=== PATIENT | male | born 1990 | race Caucasian/White ===

== ENCOUNTER 2021-02-16 14:08 | Emergency (ER) | payer OTHER ==
[2021-02-16] MEDS ORDERED: Ketorolac 15 MG/ML SDV IM ONE (14:55)
--- NOTE | 2021-02-16 15:33 | CR ---
INDICATION: Foreign body. TECHNIQUE: Three view left hand. IMPRESSION: Metallic foreign body (threaded bolt) volar aspect of the carpal tissues No definite osseous abnormality or fracture. No other osseous fractures or joint space abnormalities. Anatomic alignment. Dictated by Yonas Coronel MD @ 02/16/2021 3:33:[address] Yonas Coronel @ Feb 16 2021 3:33PM
[2021-02-16] MEDS ORDERED: Lidocaine 1% 10 ML MDV INJECT ONE (15:37)
--- NOTE | 2021-02-16 16:40 | CR ---
Indication: Foreign body removal Technique: Three views left hand Comparison: Same date at 2:58 p.m. Findings/impression: Interval removal of a threaded bolt from the volar aspect of the carpal region. No residual radiopaque foreign body or fracture. Dictated by Cindy Thapa MD @ 02/16/2021 4:39:[address] Cindy Thapa @ Feb 16 2021 4:39PM
[2021-02-16] MEDS ORDERED: Diphtheria,Pertussis(Acell),Tetanus Vaccine 0.5 ML Syringe IM ONE (16:44)
[2021-02-16] MEDS ORDERED: Cephalexin 250 MG/5 ML Susp 100 ML Bottle PO ONE (16:49)
--- NOTE | 2021-02-16 17:04 | EDM.PDOC ---
ED HPI GENERAL MEDICAL PROBLEM - General Chief Complaint: Upper Extremity Injury/Pain Stated Complaint: SCREW IN LFT HAND Time Seen by Provider: 02/16/21 14:37 - History of Present Illness INITIAL COMMENTS - FREE TEXT/NARRATIVE: HISTORY AND PHYSICAL: History of present illness: Patient is a 31-year-old male who presents to the emergency room with complaints of a threaded bolt/screw embedded in the palmar aspect of his left hand. Patient states he was doing some work in the garage when a nail/screw gun had gone off resulting in the screw in the palmar aspect of his left hand. The head of the nail is flush with the skin. He has full range of motion of his fingers and wrist. Denies any other bodily injury or pain. Offers no systemic complaints. Unsure of his last tetanus update. Review of systems: As per history of present illness and below otherwise all systems reviewed and negative. Past medical history: As per history of present illness and as reviewed below otherwise noncontributory. Surgical history: As per history of present illness and as reviewed below otherwise noncontributory. Social history: See social history for further information Family history: As per history of present illness and as reviewed below otherwise noncontributory. Physical exam: General: Well developed and well nourished. Alert and orientated x 3. Nontoxic in appearance and in no acute distress. Vital signs are stable and have been reviewed by me. Nursing notes were reviewed. HEENT: Atraumatic, normocephalic, pupils equal and reactive bilaterally, negative for conjunctival pallor or scleral icterus, mucous membranes moist, TMs normal bilaterally, throat clear, neck supple, nontender, trachea midline. No drooling or trismus noted. No meningeal signs. No hot potato voice noted. Lungs: Clear to auscultation bilaterally. No wheezes, rales, or rhonchi. Chest nontender. Normal work of breathing, no accessory muscles used. Heart: S1S2, regular rate and rhythm without overt murmur, gallops, or rubs. No JVD. No peripheral edema Abdomen: Soft, nondistended, nontender. Skin: Foreign body (screw) embedded in the volar aspect of the palmar/base of left thumb. Surrounding skin is intact, warm, dry. No lesions or rashes noted. Hematologic: No petechiae or purpra. Mucosa appropriate color and normal nail bed color and refill. Extremities: Atraumatic, moves all extremities per self without difficulty or deficits, negative for cords or calf pain. Neurovascular unremarkable. Neuro: Awake, alert, oriented. Cranial nerves II through XII unremarkable. Cerebellum unremarkable. Motor and sensory unremarkable throughout. Exam nonfocal. Psychiatric: Mood and affect are appropriate. Normal thought process. Answering questions appropriately. Please note that the patient was seen and evaluated during the 2019 SARS-CoV-2 novel coronavirus pandemic period. Community viral transmission is ongoing at time of this encounter and the emergency department is operating under pandemic response procedures. Medical Decision Making: I did see this patient with Dr. Bravo. Patient is a 31-year-old male who presents to the emergency room with complaints of a screw embedded in the palm of his left hand. Patient has full function of the fingers and wrist. Preremoval x-ray shows a metallic foreign body (threaded bolt) volar aspect of the carpal tissues. No definite osseous abnormality or fracture. No other osseo us fractures or joint space abnormalities. Anatomic alignment. Dr Bravo provided pain relief with lidocaine injection. The screw was easily removed with direct force. Patient tolerated well. Still has full function and movement of all fingers and wrist. Cap refill less than 3 seconds. No active bleeding post removal. We will get a x-ray to confirm no fractures after the foreign body has been removed. The foreign body site was thoroughly irrigated with wound wash and cleansed with chlorhexidine. Bacitracin nonstick dressing was applied. Interval removal of a threaded bolt from the volar aspect of the carpal region. No residual radiopaque foreign body or fracture. I have talked with the patient about today's findings, in addition to providing specific details for plan of care. Reassessment at the time of disposition demonstrates that the patient is in no acute distress. The patient is stable for discharge, counseling was provided and we discussed in great detail signs and symptoms that would prompt them to return to the Emergency Department. Medication, follow up and supportive care measures were reviewed and discussed. Voices understanding and is agreeable to plan of care. Denies any further questions or concerns at this time. Diagnostics: Hand x-ray, post foreign body removal hand x-ray Therapeutics: Lidocaine Prescription: Keflex Impression: Foreign body of right hand Plan: 1. Today you were seen on an emergent basis. A lidocaine injection was used to help remove the foreign body from your hand. Pre and post removal x-ray shows no fractures. Would like you to keep the area clean and dry, wash with mild soap and water twice daily. Take the Keflex one tab twice daily to prevent an infection. 2. Tylenol and/or ibuprofen as needed for pain management. 3. Please follow-up with your primary care provider or a hand surgeon if you feel you need reevaluation. 4. If at any time your symptoms worsen or new symptoms develop you're always welcome to return to the emergency room for reevaluation. Definitive disposition and diagnosis as appropriate pending reevaluation and review of above. Left Hand Pain Score (Numeric/FACES): 7 - Related Data Allergies Allergy/AdvReac Type Severity Reaction Status Date / Time No Known Allergies Allergy Verified 02/16/21 14:44 Home Meds: Home Meds cephALEXin [Keflex] 500 mg PO BID 5 Days #10 cap 02/16/21 [Rx] Past Medical History - Past Health History Medical/Surgical History: Denies Medical/Surgical History - Infectious Disease History Infectious Disease History: Reports: None Social & Family History - Tobacco Use Tobacco Use Status *Q: Never Tobacco User - Caffeine Use Caffeine Use: Reports: None - Recreational Drug Use Recreational Drug Use: No Review of Systems - Review of Systems Review Of Systems: Comprehensive ROS is negative, except as noted in HPI. ED EXAM, GENERAL - Physical Exam Exam: See Below (See dictation) ED TRAUMA EXTREMITY PROCEDURES - Foreign Body Removal Indication:: Left palmar surface Consent Obtained: Patient Performing Doctor:: Gabriel Bravo Anesthesia Type: Local Complications:: No Course - Vital Signs Last Recorded V/S: Last Vital Signs Temp 97.2 F 02/16/21 14:45 Pulse 83 02/16/21 17:10 Resp 16 02/16/21 14:45 BP 134/80 02/16/21 17:10 Pulse Ox 96 02/16/21 17:10 - Orders/Labs/Meds Meds: Medications Discontinued Medications Generic Name Dose Route Start Last Admin Trade Name Freq PRN Reason Stop Dose Admin Cephalexin 250 mg 02/16/21 16:49 02/16/21 17:13 Cephalexin 250 Mg/5 Ml Susp 100 Ml Bottle PO 02/16/21 16:50 Not Given ONETIME ONE Diphtheria/Tetanus/Acell Pertussis 0.5 ml 02/16/21 16:44 02/16/21 17:14 Diphtheria,Pertussis(Acell),Tetanus Vaccine 0.5 Ml Syringe IM 02/16/21 16:45 0.5 ml .ONCE ONE Administration Ketorolac Tromethamine 15 mg 02/16/21 14:55 02/16/21 15:11 Ketorolac 15 Mg/Ml Sdv IM 02/16/21 14:56 15 mg ONETIME ONE Administration Lidocaine HCl 10 ml 02/16/21 15:37 02/16/21 15:39 Lidocaine 1% 10 Ml Mdv INJECT 02/16/21 15:38 Not Given ONETIME ONE Lidocaine HCl Confirm 02/16/21 15:38 02/16/21 15:41 Lidocaine 1% 5 Ml Sdv Administered 02/16/21 15:39 Not Given Dose 10 ml .ROUTE .STK-MED ONE Lidocaine HCl 10 ml 02/16/21 15:39 02/16/21 15:45 Lidocaine 1% 5 Ml Sdv INJECT 02/16/21 15:40 10 ml ONETIME ONE Administration Departure - Departure Time of Disposition: 17:02 Disposition: Home, Self-Care 01 Clinical Impression: Foreign body hand Qualifiers: Encounter type: initial encounter Laterality: left Qualified Code(s): S60.552A - Superficial foreign body of left hand, initial encounter - Discharge Information Prescriptions: cephALEXin [Keflex] 500 mg PO BID 5 Days #10 cap Instructions: Skin Foreign Body Referrals: PCP,None [Primary Care Provider] - Forms: ED Department Discharge Additional Instructions: The following information is given to patients seen in the emergency department who are being discharged to home. This information is to outline your options for follow-up care. We provide all patients seen in our emergency department with a follow-up referral. The need for follow-up, as well as the timing and circumstances, are variable depending upon the specifics of your emergency department visit. If you don't have a primary care physician on staff, we will provide you with a referral. We always advise you to contact your personal physician following an emergency department visit to inform them of the circumstance of the visit and for follow-up with them and/or the need for any referrals to a consulting specialist. The emergency department will also refer you to a specialist when appropriate. This referral assures that you have the opportunity for follow-up care with a specialist. All of these measure are taken in an effort to provide you with optimal care, which includes your follow-up. Under all circumstances we always encourage you to contact your private physician who remains a resource for coordinating your care. When calling for follow-up care, please make the office aware that this follow-up is from your recent emergency room visit. If for any reason you are refused follow-up, please contact the [facility] Emergency Department at and asked to speak to the emergency department charge nurse. [facility] [address] [place] [address] [facility] [address] [place] [id number] Thank you for choosing the [facility] emergency department in [place] for your medical needs today. It was a pleasure caring for you. Today you were seen in the emergency department for foreign body of the hand. 1. Today you were seen on an emergent basis. A lidocaine injection was used to help remove the foreign body from your hand. Pre and post removal x-ray shows no fractures. Would like you to keep the area clean and dry, wash with mild soap and water twice daily. Take the Keflex one tab twice daily to prevent an infection. 2. Tylenol and/or ibuprofen as needed for pain management. 3. Please follow-up with your primary care provider or a hand surgeon if you feel you need reevaluation. 4. If at any time your symptoms worsen or new symptoms develop you're always welcome to return to the emergency room for reevaluation. Sepsis Event Note (ED) - Evaluation Sepsis Screening Result: No Definite Risk - Focused Exam Vital Signs: Vital Signs Temp Pulse Resp BP Pulse Ox 02/16/21 17:10 83 134/80 96 02/16/21 14:45 97.2 F 94 16 141/87 H 99
== END 2021-02-16 17:16 | disposition home or self-care (01) ==
LOC: MW.ED 14:08
DX: S60.552A Superficial foreign body of left hand, initial encounter (principal); Z23 Encounter for immunization; W45.8XXA Other foreign body or object entering through skin, initial encounter
CPT/HCPCS: 73130; 90471; 90715; 96372; 99283; J1885